=== PATIENT | female | born 1985 | race Caucasian/White ===

== ENCOUNTER 2016-12-29 07:31 | Emergency (ER) | payer OTHER ==
[~2016-12-29] VITALS: Ht 167.6 cm; Wt 86.4 kg
[~2016-12-29 07:31] MED LIST: MOTRIN 800800 MG/TAB PO; NO HOME MEDICATIONS; NORCO 325 MG-51 TAB PO; OMNICEF 300MG300 MG PO; PERCOCET 325 MG1 TA2 PO; PERCOCET 5/321 UDTAB PO; PRENATAL; ZOFRAN 4MG T4 MG/TAB PO
[2016-12-29 07:32] VITALS: BP 103/67; PULSE 84; TEMP 98.9
[2016-12-29] MEDS ORDERED: SPRINTEC 35 MCG1 TAB PO (07:36)
[2016-12-29] MEDS ORDERED: NORCO 325 MG-51 TAB PO (08:06)
[2016-12-29] MEDS ORDERED: FLOXIN OTIC DROP5 ML OU (08:06)
== END 2016-12-29 08:23 | disposition home or self-care (01) ==
LOC: COL.ER 07:31
DX: S05.01XA Injury of conjunctiva and corneal abrasion without foreign body, right eye, initial encounter (principal); X58.XXXA Exposure to other specified factors, initial encounter